=== PATIENT | female | born 1955 | race Caucasian/White ===

== ENCOUNTER → 2018-10-20 | Outpatient (CLI) | payer OTHER, MEDICARE ==
[~2018-10-20] MED LIST: GADOBUTROL 10 ML VIAL IVP ONE
== END ==
LOC: FIMAGING 14:33
PROVIDERS: ATTEND Otolaryngology
DX: G50.1 Atypical facial pain (principal)
CPT/HCPCS: 70553; A9585; 82565-PO

== ENCOUNTER → 2019-01-20 | Outpatient (CLI) | payer OTHER, MEDICARE | LOC: FIMAGING 10:32 ==